=== PATIENT | female | born 1990 | race Asian ===

== ENCOUNTER 2019-06-30 10:09 | Outpatient (CLI) | payer OTHER ==
[2019-07-01 11:15] LABS: ESTRADIOL 45.7 pg/mL (.); FOLLICLE STIMULATION HORMONE 8.2 mIU/mL (.); LUETENIZING HORMONE 4.8 mIU/mL (.); PROLACTIN 9.4 ng/mL (4.8-23.3); TESTOSTERONE, SERUM TOTAL 63 ng/dL (8-48)
[2019-07-02 15:06] LABS: TESTOSTERONE, FREE (DIRECT) 2.7 pg/mL (0.0-4.2)
== END 2019-06-30 21:23 | disposition home or self-care (01) ==
LOC: SLB 10:09
PROVIDERS: ATTEND Specialist
DX: N91.4 Secondary oligomenorrhea (principal)
CPT/HCPCS: 36415; 82627; 82670; 83001; 83002; 84146; 84402; 84403; 84443-TC